=== PATIENT | female | born 1995 | race Two or more races ===

== ENCOUNTER 2016-11-28 10:43 | Emergency (ER) | payer BC ==
--- NOTE | ~2016-11-28 | ER ---
PATIENT'S NAME: WHITNEY MARVIN [facility] AGE: 21 Y [address] ROOM: [place] [address] LOCATION: ED ADMIT DATE: 11/28/2016 ER/Outpatient Report DISCHARGE DATE: 11/28/2016 FAMILY PHYSICIAN: Adriano Treviño MD ATTENDING PHYSICIAN: Yordy Santiago Admission date and time documented on the medical record. I saw the patient at 1105 hours. CHIEF COMPLAINT: Mid epigastric right upper quadrant abdominal pain. HISTORY OF PRESENT ILLNESS: This patient is a 21-year-old female, who last night around 2100 hours developed epigastric right upper quadrant abdominal pain. This has gradually worsened through the night and this morning. She presented to the emergency room for evaluation. No fall or trauma. Did have a little bit of left lateral posterior rib cage pain. This started on Monday. She continues to have this pain, and then right upper quadrant pain developed that last night. A little bit of nausea, but no vomiting, diarrhea. Last bowel movement was on Monday. Not had any problem with constipation. No chest pain, shortness of breath. No headache, eyes, ears, nose, throat, neck, or spine pain. No recent colds, coughs, flus, fever, chills, or sweats. No joint or muscle swelling, redness, or pain. No skin eruptions or rash. Does have hypothyroidism, anxiety. No depression. No diabetes. No neuro changes. HOME MEDICATIONS: See attached medication list. ALLERGIES: NYSTATIN. SOCIAL HISTORY: Nonsmoker, occasional intake of alcohol. SIGNIFICANT PAST MEDICAL HISTORY: Hypothyroidism, anxiety. OPERATIONS: Tympanostomy tubes. REVIEW OF SYSTEMS: All systems reviewed by me are negative with the exception of those discussed in the history of present illness. PATIENT'S NAME: WHITNEY MARVIN [facility] AGE: 21 Y [address] ROOM: [place] [address] LOCATION: ED ADMIT DATE: 11/28/2016 ER/Outpatient Report DISCHARGE DATE: 11/28/2016 FAMILY PHYSICIAN: Adriano Treviño MD ATTENDING PHYSICIAN: Yordy Santiago PHYSICAL EXAMINATION: VITAL SIGNS: Temperature 97.6 tympanic, pulse 66, respirations 18, blood pressure 170/109, O2 saturation on room air is 100%. HEAD: Normocephalic. EYES, EARS, NOSE, THROAT: Clear. Mucous membranes moist. NECK: Negative. LUNGS: Clear. HEART: Regular. ABDOMEN: Obese, soft, tender in epigastric right upper quadrant. Mild guarding. No distention. No rigidity. No rebound tenderness. No CVA tenderness. No organomegaly or abnormal mass palpable. EXTREMITIES: Intact. NEUROVASCULAR: Intact. SKIN: Clear. LABORATORY DATA AND X-RAYS: Procalcitonin was less than 0.05. White count was 10,200, 77 segs, 15 lymphs, 6 monos, 1 eo, 1 baso, hemoglobin was 12.1 with hematocrit 36.8, platelet count 281,000. CMS was normal except for a low calcium of 8.4. CRP was normal at 0.90. Lactate was 1.1. Ultrasound of the gallbladder showed gallstones and sludge. No thickened gallbladder wall. No pericholecystic fluid. Normal common duct. See Radiology report. IMPRESSION: 1. Epigastric right upper quadrant abdominal pain secondary to cholelithiasis. No evidence of acute cholecystitis. 2. Hypothyroidism. 3. Anxiety. 4. Obesity. PLAN: The patient dismissed home. Observation. Activity as tolerated. Avoid greasy, spicy, fatty, fried foods. Percocet 10/325 as needed for pain. Follow up with personal physician to discuss whether she wants to get her gallbladder out and when she wants it out. Continue other home medications and care. Discussion ensued with the patient concerning my findings and recommendations, she understands. YORDY SANTIAGO MD SDS/modl PATIENT'S NAME: WHITNEY MARVIN [facility] AGE: 21 Y [address] ROOM: [place] [address] LOCATION: [facility] ADMIT DATE: 11/28/2016 ER/Outpatient Report DISCHARGE DATE: 11/28/2016 FAMILY PHYSICIAN: Adriano Treviño MD ATTENDING PHYSICIAN: Yordy Santiago /[id number] d: 11/28/[id number] t: 11/29/16613, OUTPATIENT REPORT
[2016-11-28 12:51] LABS: ALBUMIN 3.5 gm/dL (3.5-5.0); ALK PHOS 61 IU/L (33-138); ALT 37 IU/L (12-78); ANION GAP 12.9 (10.0-19.0); AST 22 IU/L (10-40); BLOOD UREA NITROGEN 11 mg/dL (6-24); CALCIUM 8.4 mg/dL (8.5-10.5); CHLORIDE 106 mMol/L (96-110); CO2 25 mMol/L (22-32); CREATININE 0.6 mg/dL (0.5-1.1); POTASSIUM 3.9 mMol/L (3.7-5.1); SODIUM 140 mMol/L (135-145); TOTAL BILIRUBIN 0.4 mg/dL (0.0-1.5); TOTAL PROTEIN 7.4 g/dL (6.0-8.4)
[2016-11-28 12:53] LABS: BASOPHIL # 0.1 K/uL (0.0-0.2); BASOPHIL % 0.5 %; EOSINOPHIL # 0.1 K/uL (0.0-0.5); EOSINOPHIL % 1.3 %; HEMATOCRIT 36.8 % (33.0-46.0); HEMOGLOBIN 12.1 g/dL (11.0-15.0); IMMATURE GRANULOCYTE % 0.3 %; LYMPHOCYTE # 1.5 K/uL (0.8-4.0); LYMPHOCYTE % 15.1 %; MCH 27.9 pg (27.0-34.0); MCHC 32.9 gm/dL (32.0-36.5); MONOCYTE # 0.6 K/uL (0.0-1.0); MONOCYTE % 5.5 %; MPV 11.9 fl (9.4-12.4); NEUTROPHIL # (ANC) 7.9 K/uL (1.8-7.8); NEUTROPHIL % 77.3 %; NRBC % 0 /100WBC (0-0.00); PLATELET COUNT 281 K/uL (150-450); RBC 4.33 M/uL (3.50-5.00); RDW-CV 13.6 % (11.9-14.6); WBC 10.2 K/uL (4.0-11.0)
== END 2016-11-28 13:40 | disposition disaster alternative care site (69) ==
LOC: GMED 10:43
PROVIDERS: Emergency Medicine
DX: K80.20 Calculus of gallbladder without cholecystitis without obstruction (principal); E03.9 Hypothyroidism, unspecified; F41.9 Anxiety disorder, unspecified; E66.9 Obesity, unspecified; Z79.899 Other long term (current) drug therapy; Z88.8 Allergy status to other drugs, medicaments and biological substances; Z98.890 Other specified postprocedural states